=== PATIENT | female | born 1985 | race Caucasian/White ===

== ENCOUNTER 2018-06-26 02:57 | Emergency (ER) | payer OTHER ==
[~2018-06-26] VITALS: Ht 154.9 cm; Wt 78.0 kg
== END 2018-06-26 04:18 | disposition home or self-care (01) ==
LOC: ED 02:57
DX: S86.911A Strain of unspecified muscle(s) and tendon(s) at lower leg level, right leg, initial encounter (principal); W22.8XXA Striking against or struck by other objects, initial encounter; Y93.89 Activity, other specified; Y92.838 Other recreation area as the place of occurrence of the external cause; Y99.8 Other external cause status